=== PATIENT | male | born 1945 | race Caucasian/White ===

== ENCOUNTER 2020-08-19 12:18 | Inpatient (IN) | payer OTHER ==
[~2020-08-19] VITALS: Ht 180.3 cm; Wt 122.7 kg
[~2020-08-19 12:18] MED LIST: ALB0.5UD IH; ASPI81TA52 PO; CARV-49 PO; CHOL2000 PO; DULO60CA65 PO; FURO-149 PO; GABA-534 PO; LANTUS SQ; LOSA25TA41 PO; METF-438 PO; ROSU40TA PO; SPIR25TA5 PO
[2020-08-19] MEDS ORDERED: normal saline 1000ML IV soln IVB ONE (13:10)
[2020-08-19 13:39] LABS: BASOPHILS % (AUTO) 0.2 % (0-1); EOSINOPHILS % (AUTO) 0.2 % (0-6); HEMATOCRIT 26.4 % (42.0-52.0); HEMOGLOBIN 9.2 g/dl (14.0-17.9); LYMPHOCYTES # (AUTO) 1.1 X10'3 (1.1-4.8); LYMPHOCYTES % (AUTO) 43.8 % (21-51); MEAN CORPUSCULAR HEMOGLOBIN 32.5 PG (27.0-31.0); MEAN CORPUSCULAR HGB CONC 34.9 g/dL (33.0-36.5); MEAN CORPUSCULAR VOLUME 93.2 FL (78-98); MEAN PLATELET VOLUME 6.5 FL (7.4-10.4); MONOCYTES # (AUTO) 0.4 X10'3 (0-0.9); NEUTROPHILS % (AUTO) 38.8 % (42-75); PLATELET COUNT 144 X10'3 (140-440); RED BLOOD COUNT 2.84 X10'6 (4.70-6.10); RED CELL DISTRIBUTION WIDTH 22.3 % (11.5-14.5); WHITE BLOOD COUNT 2.6 X10'3 (4.5-11.0)
[2020-08-19 13:57] LABS: ALANINE AMINOTRANSFERASE 11 U/L (12-78); ALBUMIN 3.2 G/DL (3.4-5.0); ALKALINE PHOSPHATASE 70 IU/L (46-116); ANION GAP 2 (8-16); ASPARTATE AMINO TRANSFERASE 17 U/L (10-37); BILIRUBIN,TOTAL 0.7 MG/DL (0.1-1.0); BLOOD UREA NITROGEN 24 MG/DL (7-18); BUN/CREATININE RATIO 14.5 (5.4-32.0); CALCIUM 8.9 MG/DL (8.5-10.1); CHLORIDE 105 MMOL/L (99-107); CREATININE 1.66 MG/DL (0.60-1.10); GLUCOSE 198 MG/DL (70-104); POTASSIUM 4.9 MMOL/L (3.5-5.1); SODIUM 138 MMOL/L (135-145); TOTAL PROTEIN 6.5 G/DL (6.4-8.2); eGFR 41 ML/MIN
[2020-08-19 14:01] LABS: TROPONIN I < 0.04 NG/ML (0.0-0.05)
--- NOTE | 2020-08-19 14:30 | NUR ---
tele neuro cart set up at bedside . at bedside.
[2020-08-19] MEDS ORDERED: iohexol 350MG/ML 100ml bottle IV ONE (14:52)
[2020-08-19 14:57] LABS: ANISOCYTOSIS 3+; PLATELET ESTIMATE NORMAL; TOTAL CELLS COUNTED 100
[2020-08-19 14:58] LABS: ELLIPTOCYTES 1+
--- NOTE | 2020-08-19 15:08 | NUR ---
pt using urinal at this time ,will collect urine sample.
[2020-08-19] MEDS ORDERED: dextrose ORAL solution 15 GM/59 ML bottle PO PRN ×2 (15:50)
[2020-08-19] MEDS ORDERED: mag hydrox/Alum hydrox/simeth 30ml oral suspension PO PRN (15:50)
[2020-08-19] MEDS ORDERED: glucagon, human recombinant 1mg kit SUBCUT PRN (15:50)
[2020-08-19] MEDS ORDERED: magnesium hydroxide 30ml (MOM) UD suspension PO PRN (15:50)
[2020-08-19] MEDS ORDERED: MESSAGE TO PHARMACY PO ONE (15:50)
[2020-08-19] MEDS ORDERED: dextrose 50%-water 50ml dispensing syringe IV PRN ×2 (15:50)
[2020-08-19] MEDS ORDERED: ondansetron/PF 4mg/2ml inj IV PRN (15:50)
[2020-08-19] MEDS ORDERED: insulin Lispro (HumaLOG) vial - multi-dose SQ SCH (15:50)
[2020-08-19] MEDS ORDERED: ROSU20TA2 PO (15:58)
[2020-08-19] MEDS ORDERED: METO-395 PO (15:58)
[2020-08-19] MEDS ORDERED: ASPI-611 PO (15:58)
[2020-08-19] MEDS ORDERED: FURO-150 PO (15:58)
[2020-08-19] MEDS ORDERED: LINA5TAB4 PO (15:58)
[2020-08-19] MEDS ORDERED: CHOL100034 PO (15:58)
[2020-08-19] MEDS ORDERED: DULO60CA65 PO (15:58)
[2020-08-19] MEDS ORDERED: CLON0.5T23 PO (15:58)
[2020-08-19] MEDS ORDERED: ISOS30TA6 PO (15:58)
[2020-08-19] MEDS ORDERED: NITR0.4T48 SL (15:58)
[2020-08-19] MEDS ORDERED: INSU100V9 SQ (15:58)
[2020-08-19] MEDS ORDERED: BUPR100T13 PO (15:58)
[2020-08-19] MEDS ORDERED: FLO0.4C PO (15:58)
[2020-08-19] MEDS ORDERED: GABA-534 PO ×2 (15:58)
[2020-08-19] MEDS ORDERED: FAMO20TA8 PO (15:58)
[2020-08-19 16:23] LABS: HEMOGLOBIN A1C 7.1 % (4.5-6.2)
[2020-08-19 16:30] LABS: CLARITY,URINE SLIGHTLY CLOUDY (Clear); COLOR,URINE YELLOW (Yellow); GLUCOSE, URINE NEGATIVE (Neg); KETONES,URINE NEGATIVE (Neg); LEUKOCYTE ESTERASE ,URINE NEGATIVE (Neg); NITRITES, URINE NEGATIVE (Neg); OCCULT BLOOD,URINE TRACE-INTACT (Neg); PROTEIN,URINE NEGATIVE (Neg)
[2020-08-19 16:34] LABS: UA COLLECTION TYPE VOIDED
[2020-08-19 16:36] LABS: HYALINE CASTS 0-3 /LPF (NEGATIVE); MUCUS STRANDS FEW /LPF (Neg); SQUAMOUS EPITHELIAL CELL,UR FEW /LPF (FEW)
[2020-08-19 16:38] LABS: BACTERIA,URINE FEW /HPF (Neg); WBC,URINE 0-4 /HPF (0-4); YEAST FEW /HPF (NEGATIVE)
[2020-08-19] MEDS ORDERED: ISOS10TA8 PO (17:08)
--- NOTE | 2020-08-19 19:20 | NUR ---
Patient came up to floor. Bed in locked in low position. Call light placed within reach.
[2020-08-19 19:46] VITALS: BP 132/70
[2020-08-19 20:59] VITALS: BP_SYST 132; BP_SYST 133; BP_SYST 94; BP_DIAS 52; BP_DIAS 55
[2020-08-19 22:00] VITALS: BP 132/52
[2020-08-20] VITALS (7 sets, daily range): BP systolic 107–170; BP diastolic 49–84
--- NOTE | 2020-08-20 06:10 | NUR ---
Patient in room ORTHO 4021. I have received report from Rachel THACKER and had the opportunity to ask questions and assume patient care.
--- NOTE | 2020-08-20 06:17 | NUR ---
Problems reprioritized. Patient report given, questions answered & plan of care reviewed with Lazara THACKER.
[2020-08-20 06:38] LABS: % IRON SATURATION 49 % (11-46); IRON 103 UG/DL (53-167); TOTAL IRON BINDING CAPACITY 210 UG/DL (259-388)
[2020-08-20 06:46] LABS: CHOL/HDL RATIO 3.5 (0.00-4.99); CHOLESTEROL 85 MG/DL (0-200); HDL CHOLESTEROL 24 MG/DL (35-60); LDL CHOLESTEROL 49 MG/DL (50-100); TRIGLYCERIDES 107 MG/DL (20-135)
[2020-08-20] MEDS ORDERED: enoxaparin 30mg/0.3ml syringe SUBCUT SCH (08:00)
--- NOTE | 2020-08-20 08:07 | NUR ---
Paged Dr. Marx about patient orthostatics positive.
[2020-08-20] MEDS ORDERED: aspirin 81mg tablet.DR PO ONE (08:15)
[2020-08-20] MEDS ORDERED: non-formulary drug (Clonazepam 1 TAB) PO PRN (08:15)
[2020-08-20] MEDS ORDERED: clonazePAM 0.5mg tablet PO PRN (08:25)
[2020-08-20 08:49] LABS: BASOPHILS % (AUTO) 0.1 % (0-1); EOSINOPHILS % (AUTO) 0.2 % (0-6); HEMATOCRIT 24.7 % (42.0-52.0); HEMOGLOBIN 8.6 g/dl (14.0-17.9); LYMPHOCYTES # (AUTO) 1.4 X10'3 (1.1-4.8); LYMPHOCYTES % (AUTO) 48.6 % (21-51); MEAN CORPUSCULAR HEMOGLOBIN 32.2 PG (27.0-31.0); MEAN CORPUSCULAR HGB CONC 34.9 g/dL (33.0-36.5); MEAN CORPUSCULAR VOLUME 92.5 FL (78-98); MEAN PLATELET VOLUME 6.7 FL (7.4-10.4); MONOCYTES # (AUTO) 0.5 X10'3 (0-0.9); MONOCYTES % (AUTO) 17.5 % (2-12); NEUTROPHILS # (AUTO) 0.9 X10'3 (1.8-7.7); NEUTROPHILS % (AUTO) 33.6 % (42-75); PLATELET COUNT 133 X10'3 (140-440); RED BLOOD COUNT 2.67 X10'6 (4.70-6.10); RED CELL DISTRIBUTION WIDTH 22.5 % (11.5-14.5); WHITE BLOOD COUNT 2.8 X10'3 (4.5-11.0)
[2020-08-20 08:57] LABS: ALANINE AMINOTRANSFERASE 16 U/L (12-78); ALBUMIN 3.1 G/DL (3.4-5.0); ALBUMIN/GLOBULIN RATIO 0.9 (1.1-1.5); ALKALINE PHOSPHATASE 70 IU/L (46-116); ANION GAP 8 (8-16); ASPARTATE AMINO TRANSFERASE 14 U/L (10-37); BILIRUBIN,TOTAL 0.7 MG/DL (0.1-1.0); BLOOD UREA NITROGEN 28 MG/DL (7-18); CALCIUM 8.5 MG/DL (8.5-10.1); CHLORIDE 105 MMOL/L (99-107); CREATININE 1.65 MG/DL (0.60-1.10); GLUCOSE 141 MG/DL (70-104); POTASSIUM 4.4 MMOL/L (3.5-5.1); SODIUM 140 MMOL/L (135-145); TOTAL CARBON DIOXIDE 27.4 MMOL/L (24-32); TOTAL PROTEIN 6.4 G/DL (6.4-8.2); eGFR 41 ML/MIN
[2020-08-20 09:26] LABS: TOTAL CELLS COUNTED 100
[2020-08-20 09:27] LABS: ELLIPTOCYTES 1+
[2020-08-20 09:29] LABS: ANISOCYTOSIS 3+
[2020-08-20 09:30] LABS: PLATELET ESTIMATE DECREASED; POIKILOCYTOSIS FEW
[2020-08-20 09:31] LABS: SPHEROCYTES FEW
[2020-08-20] MEDS: fludrocortisone acetate 0.1mg tablet PO SCH (10:09)
[2020-08-20] MEDS: enoxaparin 40mg/0.4ml syringe SUBCUT SCH (10:09)
--- NOTE | 2020-08-20 10:44 | NUR ---
DM consult, A1c 7.1, DM education is not indicated as current evidence shows that at the patient's age his DM is controlled. Addendum: 08/20/20 at [address] Amended: Links added.
[2020-08-20] MEDS ORDERED: gabapentin 400mg capsule PO SCH ×2 (12:00→21:00)
--- NOTE | 2020-08-20 16:21 | NUR ---
I spoke to Dr. Marx and he ordered the protocol lantus in case patient meets protocol, but He said no to start home lantus because his blood sugar has not been high.
--- NOTE | 2020-08-20 18:08 | NUR ---
Problems reprioritized. Patient report given, questions answered & plan of care reviewed with Rachel THACKER.
--- NOTE | 2020-08-20 18:30 | NUR ---
Patient in room ORTHO 4021. I have received report from Lazara THACKER and had the opportunity to ask questions and assume patient care.
[2020-08-20] MEDS ORDERED: BUPROPION HCL PO SCH (20:00)
[2020-08-20] MEDS: gabapentin 300mg capsule PO SCH (20:08)
[2020-08-20] MEDS: buPROPion SR 100mg tab PO SCH (20:08)
[2020-08-20] MEDS ORDERED: tamsulosin 0.4mg capsule PO SCH (21:00)
[2020-08-20] MEDS ORDERED: insulin glargine (Lantus) pen - multi-dose SQ SCH (21:00)
[2020-08-20] MEDS ORDERED: non-formulary drug (Rosuvastatin Calcium* (Crestor*) 1 TAB) PO SCH (21:00)
[2020-08-21 02:00] VITALS: BP_SYST 126; BP_SYST 127; BP_SYST 145; BP_DIAS 56; BP_DIAS 64; BP_DIAS 71
[2020-08-21 05:56] LABS: BASOPHILS % (AUTO) 0.1 % (0-1); EOSINOPHILS % (AUTO) 0.1 % (0-6); HEMATOCRIT 24.1 % (42.0-52.0); HEMOGLOBIN 8.5 g/dl (14.0-17.9); LYMPHOCYTES # (AUTO) 1.3 X10'3 (1.1-4.8); LYMPHOCYTES % (AUTO) 52.4 % (21-51); MEAN CORPUSCULAR HEMOGLOBIN 32.5 PG (27.0-31.0); MEAN CORPUSCULAR HGB CONC 35.2 g/dL (33.0-36.5); MEAN CORPUSCULAR VOLUME 92.2 FL (78-98); MEAN PLATELET VOLUME 6.6 FL (7.4-10.4); MONOCYTES # (AUTO) 0.5 X10'3 (0-0.9); MONOCYTES % (AUTO) 19.9 % (2-12); NEUTROPHILS # (AUTO) 0.7 X10'3 (1.8-7.7); NEUTROPHILS % (AUTO) 27.5 % (42-75); PLATELET COUNT 124 X10'3 (140-440); RED BLOOD COUNT 2.62 X10'6 (4.70-6.10); RED CELL DISTRIBUTION WIDTH 22.2 % (11.5-14.5); WHITE BLOOD COUNT 2.6 X10'3 (4.5-11.0)
[2020-08-21 06:00] VITALS: BP 166/75
[2020-08-21 06:02] LABS: ALANINE AMINOTRANSFERASE 14 U/L (12-78); ALBUMIN 3.2 G/DL (3.4-5.0); ALKALINE PHOSPHATASE 64 IU/L (46-116); ANION GAP 5 (8-16); ASPARTATE AMINO TRANSFERASE 16 U/L (10-37); BILIRUBIN,TOTAL 0.6 MG/DL (0.1-1.0); BLOOD UREA NITROGEN 24 MG/DL (7-18); CALCIUM 8.7 MG/DL (8.5-10.1); CHLORIDE 105 MMOL/L (99-107); CREATININE 1.71 MG/DL (0.60-1.10); GLUCOSE 151 MG/DL (70-104); SODIUM 139 MMOL/L (135-145); TOTAL PROTEIN 6.4 G/DL (6.4-8.2); eGFR 39 ML/MIN
--- NOTE | 2020-08-21 06:35 | NUR ---
Problems reprioritized. Patient report given, questions answered & plan of care reviewed with Julianna THACKER.
[2020-08-21 07:21] LABS: ANISOCYTOSIS 3+; ELLIPTOCYTES FEW; PLATELET ESTIMATE DECREASED; SPHEROCYTES FEW; TOTAL CELLS COUNTED 100
[2020-08-21 07:22] LABS: POIKILOCYTOSIS FEW
[2020-08-21] MEDS: gabapentin 300mg capsule PO SCH (07:42)
[2020-08-21] MEDS: buPROPion SR 100mg tab PO SCH (07:42)
[2020-08-21] MEDS: fludrocortisone acetate 0.1mg tablet PO SCH (07:44)
[2020-08-21] MEDS: enoxaparin 40mg/0.4ml syringe SUBCUT SCH (07:44)
[2020-08-21] MEDS ORDERED: non-formulary drug (Aspirin (Aspir 81) 1 TAB) PO SCH (08:00)
[2020-08-21] MEDS ORDERED: non-formulary drug (Duloxetine HCl 1 CAP) PO SCH (08:00)
[2020-08-21] MEDS ORDERED: cholecalciferol (vitamin D) 400 unit tablet PO SCH (08:00)
[2020-08-21] MEDS ORDERED: famotidine 20mg tablet PO SCH (08:00)
[2020-08-21] MEDS ORDERED: atorvastatin 20mg tablet PO SCH (08:00)
[2020-08-21] MEDS ORDERED: duloxetine 30mg CAPSULE.DR PO SCH (08:00)
[2020-08-21] MEDS ORDERED: non-formulary drug (Cholecalciferol (Vitamin D3) (Vitamin D3) 2 TAB) PO SCH (08:00)
[2020-08-21] MEDS ORDERED: famotidine 10mg tablet PO SCH (08:00)
[2020-08-21 10:00] VITALS: BP 134/60
[2020-08-21] MEDS ORDERED: FLO0.1T PO (11:05)
== END 2020-08-21 11:30 | disposition home or self-care (01) | DRG 312 ==
LOC: ER 12:18 → ED HOLD 15:47 → ORTHO 4S 19:20
PROVIDERS: ADMIT Family Medicine; ATTEND Family Medicine
DX: I95.1 Orthostatic hypotension (principal); E11.9 Type 2 diabetes mellitus without complications; I25.10 Atherosclerotic heart disease of native coronary artery without angina pectoris; E78.5 Hyperlipidemia, unspecified; F43.10 Post-traumatic stress disorder, unspecified; D64.9 Anemia, unspecified; Z88.0 Allergy status to penicillin; Z88.1 Allergy status to other antibiotic agents; Z88.8 Allergy status to other drugs, medicaments and biological substances
CPT/HCPCS: 36415; 70450; 70496; 70498; 70551; 71045; 80053; 80061; 81001; 82948; 83036; 83540; 83550; 84484; 85007; 85025; 87081; 92508; 92616; 93005; 93306; 96360; 97110; 97161; 97530; 99285; G0378; J1650; J1815; J7030; Q9967